=== PATIENT | male | born 1945 | race Caucasian/White ===

== ENCOUNTER 2019-06-18 11:57 | Observation (INO) | payer MEDICARE, OTHER, MEDICAID ==
[2019-06-18 12:50] LABS: ADD MAN DIFF? NO
[2019-06-18 12:55] LABS: BASOPHILS % 0.6 % (0.0-2.0); EOSINOPHILS # 0.1 10^3/ul (0.0-0.5); EOSINOPHILS % 1.5 % (0.0-7.0); HEMOGLOBIN 9.4 g/dl (14.0-18.0); LYMPHOCYTES # 1.1 10^3/ul (0.8-2.9); LYMPHOCYTES % 17.6 % (15.0-51.0); MEAN CORPUSCULAR HEMOGLOBIN 20.8 pg (29.0-33.0); MEAN CORPUSCULAR HGB CONC 29.4 g/dl (32.0-37.0); MEAN CORPUSCULAR VOLUME 70.8 fl (82.0-101.0); MEAN PLATELET VOLUME 8.7 fl (7.4-10.4); MONOCYTE # 0.6 10^3/ul (0.3-0.9); MONOCYTES % 10.2 % (0.0-11.0); NEUTROPHIL # 4.3 10^3/ul (1.6-7.5); NEUTROPHILS % 69.8 % (39.0-77.0); PLATELET COUNT 277 10^3/UL (140-415); RED BLOOD COUNT 4.52 10^6/ul (4.70-6.10); RED CELL DISTRIBUTION WIDTH 19.1 % (11.5-14.5)
[2019-06-18 12:55] LABS: WHITE BLOOD COUNT 6.2 10^3/ul (4.8-10.8)
[2019-06-18 12:59] LABS: ADD UMIC YES; UR ASCORBIC ACID NEGATIVE (NEGATIVE); UR BILIRUBIN (Dip) NEGATIVE (NEGATIVE); UR BLOOD (Dip) 3+ mg/dL (NEGATIVE); UR CLARITY CLOUDY (CLEAR); UR COLOR AMBER (YELLOW); UR GLUCOSE (Dip) NEGATIVE (NEGATIVE); UR KETONES (Dip) NEGATIVE (NEGATIVE); UR LEUKOCYTE ESTERASE (Dip) NEGATIVE Leu/ul (NEGATIVE); UR MUCUS FEW /HPF (NONE SEEN); UR NITRITE (Dip) NEGATIVE (NEGATIVE); UR RBC > 182 /HPF (0-5); UR SPECIFIC GRAVITY (Dip) 1.016 (1.003-1.030); UR TOTAL PROTEIN (Dip) 2+ mg/dl (NEGATIVE); UR UROBILINOGEN (Dip) NEGATIVE (NEGATIVE); UR WBC 26 /HPF (0-5)
[2019-06-18 13:16] LABS: ALANINE AMINOTRANSFERASE 74 IU/L (13-69); ALBUMIN 3.9 g/dl (3.3-4.9); ALBUMIN/GLOBULIN RATIO 1.14; ALKALINE PHOSPHATASE 58 IU/L (42-121); ANION GAP 10 (5-13); ASPARTATE AMINO TRANSFERASE 61 IU/L (15-46); BILIRUBIN,INDIRECT 0.5 mg/dl (0-1.1); BILIRUBIN,TOTAL 0.5 mg/dl (0.2-1.3); BLOOD UREA NITROGEN 27 mg/dl (7-20); CALCIUM 8.7 mg/dl (8.4-10.2); CARBON DIOXIDE 23 mmol/L (21-31); CHLORIDE 108 mmol/L (97-110); CREATININE 1.28 mg/dl (0.61-1.24); GLUCOSE 148 mg/dl (70-220); POTASSIUM 4.6 mmol/L (3.5-5.1); SODIUM 141 mmol/L (135-144); TOTAL PROTEIN 7.3 g/dl (6.1-8.1)
[2019-06-18] MEDS ORDERED: ACETAMINOPHEN 650 MG SUPP PR (14:30)
[2019-06-18] MEDS ORDERED: ONDANSETRON 4 MG INJ IV (14:30)
[2019-06-18] MEDS ORDERED: NACL 0.9% 3 ML SYG IV (14:30)
[2019-06-18] MEDS ORDERED: morphine 2 MG INJ IV (14:30)
[2019-06-18] MEDS ORDERED: ACETAMINOPHEN 325 MG TAB PO (14:30)
[2019-06-18] MEDS ORDERED: HYDROCODONE/APAP (5/325) TAB PO (14:30)
[2019-06-18] MEDS: SOTALOL 80 MG TAB PO (22:58)
[2019-06-18] MEDS: LOSARTAN 50 MG TAB PO (22:59)
[2019-06-19] MEDS: PANTOPRAZOLE (EC) 40 MG TAB PO (06:01)
[2019-06-19 06:28] LABS: ADD MAN DIFF? NO
[2019-06-19 06:28] LABS: WHITE BLOOD COUNT 5.2 10^3/ul (4.8-10.8)
[2019-06-19 06:29] LABS: BASOPHIL # 0.1 10^3/ul (0.0-0.1); BASOPHILS % 1.2 % (0.0-2.0); EOSINOPHILS # 0.2 10^3/ul (0.0-0.5); EOSINOPHILS % 3.1 % (0.0-7.0); HEMATOCRIT 33.2 % (42.0-52.0); HEMOGLOBIN 9.7 g/dl (14.0-18.0); LYMPHOCYTES # 1.3 10^3/ul (0.8-2.9); LYMPHOCYTES % 25.4 % (15.0-51.0); MEAN CORPUSCULAR HEMOGLOBIN 20.8 pg (29.0-33.0); MEAN CORPUSCULAR HGB CONC 29.2 g/dl (32.0-37.0); MEAN CORPUSCULAR VOLUME 71.1 fl (82.0-101.0); MONOCYTE # 0.6 10^3/ul (0.3-0.9); MONOCYTES % 11.6 % (0.0-11.0); NEUTROPHILS % 58.5 % (39.0-77.0); PLATELET COUNT 275 10^3/UL (140-415); RED BLOOD COUNT 4.67 10^6/ul (4.70-6.10); RED CELL DISTRIBUTION WIDTH 19.3 % (11.5-14.5)
[2019-06-19 06:59] LABS: ALANINE AMINOTRANSFERASE 75 IU/L (13-69); ALBUMIN 3.8 g/dl (3.3-4.9); ALBUMIN/GLOBULIN RATIO 1.15; ALKALINE PHOSPHATASE 62 IU/L (42-121); ANION GAP 9 (5-13); ASPARTATE AMINO TRANSFERASE 54 IU/L (15-46); BILIRUBIN,INDIRECT 0.6 mg/dl (0-1.1); BILIRUBIN,TOTAL 0.6 mg/dl (0.2-1.3); BLOOD UREA NITROGEN 27 mg/dl (7-20); CALCIUM 8.7 mg/dl (8.4-10.2); CARBON DIOXIDE 25 mmol/L (21-31); CHLORIDE 107 mmol/L (97-110); CHOL/HDL RATIO 3.9 RATIO; CHOLESTEROL 126 mg/dl (100-200); CREATININE 1.18 mg/dl (0.61-1.24); GLUCOSE 110 mg/dl (70-220); HDL CHOLESTEROL 32 mg/dl (31-75); LDL CHOLESTEROL,CALCULATED 76 mg/dl; MAGNESIUM 2.2 mg/dl (1.7-2.5); PHOSPHORUS 4.2 mg/dl (2.5-4.9); POTASSIUM 3.9 mmol/L (3.5-5.1); SODIUM 141 mmol/L (135-144); TOTAL PROTEIN 7.1 g/dl (6.1-8.1); TRIGLYCERIDES 88 mg/dl (0-149)
[2019-06-19 07:00] LABS: HEMOGLOBIN A1C 6.2 % (0-5.9)
[2019-06-19 07:03] LABS: IRON 12 ug/dl (35-150)
[2019-06-19 07:11] LABS: FREE THYROXINE INDEX (Calc) 4.44 ug/ml (0.65-3.89); T3 UPTAKE 46.3 % (23.5-40.5); T4 (THYROXINE) 9.6 ug/dl (5.5-11.0)
[2019-06-19 07:12] LABS: % IRON SATURATION 3 % SAT (22-52); TOTAL IRON BINDING CAPACITY 458 ug/dl (241-421)
[2019-06-19] MEDS: SOTALOL 80 MG TAB PO ×2 (08:56→22:36)
[2019-06-19] MEDS: ATORVASTATIN 40 MG TAB PO (08:56)
[2019-06-19] MEDS: FINASTERIDE 5 MG TAB PO (08:56)
[2019-06-19] MEDS: SOD CHLORIDE 0.9% 100 ML (09:43)
[2019-06-19] MEDS: IOHEXOL 300MG/ML 150 ML BTL (09:44)
[2019-06-19] MEDS: LOSARTAN 50 MG TAB PO (22:39)
[2019-06-20] MEDS: PANTOPRAZOLE (EC) 40 MG TAB PO (05:46)
[2019-06-20] MEDS: ATORVASTATIN 40 MG TAB PO (08:28)
[2019-06-20] MEDS: FINASTERIDE 5 MG TAB PO (08:28)
[2019-06-20] MEDS: SOTALOL 80 MG TAB PO (08:29)
[2019-06-20 12:35] LABS: HEMATOCRIT 34.8 % (42.0-52.0); HEMOGLOBIN 10.2 g/dl (14.0-18.0)
== END 2019-06-20 18:39 | disposition home or self-care (01) ==
LOC: FTE 11:57 → PP2 14:11
DX: R31.9 Hematuria, unspecified (principal); D64.9 Anemia, unspecified; I48.91 Unspecified atrial fibrillation; I10 Essential (primary) hypertension; I25.10 Atherosclerotic heart disease of native coronary artery without angina pectoris; Z95.1 Presence of aortocoronary bypass graft; Z95.810 Presence of automatic (implantable) cardiac defibrillator; Z87.891 Personal history of nicotine dependence; K40.90 Unilateral inguinal hernia, without obstruction or gangrene, not specified as recurrent; K42.9 Umbilical hernia without obstruction or gangrene; G47.30 Sleep apnea, unspecified; I42.9 Cardiomyopathy, unspecified; I34.0 Nonrheumatic mitral (valve) insufficiency; I07.1 Rheumatic tricuspid insufficiency; Z79.01 Long term (current) use of anticoagulants; Z86.73 Personal history of transient ischemic attack (TIA), and cerebral infarction without residual deficits
CPT/HCPCS: 74178; 76775; 80053; 80061; 81001; 83036; 83540; 83735; 84100; 84436; 84443; 84479; 85014; 85018; 85025; 87086; 93005; 93306; 99285-25; G0378